=== PATIENT | female | born 1960 | race Caucasian/White ===

== ENCOUNTER 2016-08-01 16:28 | Emergency (ER) | payer OTHER ==
[~2016-08-01] VITALS: Ht 160 cm; Wt 95.3 kg
[2016-08-01 16:29] VITALS: BP 144/97
[2016-08-01] MEDS ORDERED: METF500T PO (16:44)
[2016-08-01] MEDS ORDERED: NEXI40CA PO (16:44)
--- NOTE | 2016-08-01 18:11 | REP ---
CT of the brain without IV contrast: Comparison is 03/05/2012. There is no hemorrhage. There is no edema, mass effect or midline shift. Cortical stripe is unremarkable. Ventricles are normal size and midline. The visualized paranasal sinuses and mastoid air cells are clear. Impression: There is no hemorrhage, acute infarct or mass. Negative CT study of the brain. No interval change. Signed by Bg Leon MD 08/01/2016 06:03 P
== END 2016-08-01 19:07 | disposition home or self-care (01) ==
LOC: M ED 17:18
DX: H53.8 Other visual disturbances (principal); R51 Headache; E11.9 Type 2 diabetes mellitus without complications; M79.7 Fibromyalgia; Z79.899 Other long term (current) drug therapy; Z79.84 Long term (current) use of oral hypoglycemic drugs